=== PATIENT | male | born 1960 | race Caucasian/White ===

== ENCOUNTER → 2016-04-15 | Outpatient (CLI) | payer BC | LOC: SP 15:51 | PROVIDERS: ATTEND Internal Medicine | DX: I72.0 Aneurysm of carotid artery (principal) | CPT/HCPCS: 93880 ==

== ENCOUNTER → 2016-07-27 | Outpatient (CLI) | payer BC | LOC: RAD 12:38 | PROVIDERS: ATTEND Internal Medicine | DX: M79.662 Pain in left lower leg (principal); M79.89 Other specified soft tissue disorders; Z86.718 Personal history of other venous thrombosis and embolism | CPT/HCPCS: 93971 ==

== ENCOUNTER 2016-09-01 10:22 | Emergency (ER) | payer BC ==
[2016-09-01] MEDS ORDERED: ACETAMINOPHEN 325 MG TABLET PO ONE (11:24)
[2016-09-01] MEDS ORDERED: OXYCODONE HCL IR 5 MG TABLET PO ONE (12:05)
--- NOTE | 2016-09-01 13:20 | ER Document Report ---
ED General - General Chief Complaint: Leg Injury Stated Complaint: LEG PAIN Time Seen by Provider: 09/01/16 11:54 Mode of Arrival: Ambulatory Information source: Patient Notes: This is a 55-year-old man with a history of VTE presents to the emergency room with right lower extremity pain after hitting the leg against furniture. The patient is on Coumadin TRAVEL OUTSIDE OF THE [place] IN LAST 30 DAYS: No - HPI Onset: Just prior to arrival Onset/Duration: Sudden Quality of pain: Dull Severity: Moderate Pain Level: 2 Associated symptoms: denies: Chills, Fever, Shortness of breath Exacerbated by: Denies, Other - touching Relieved by: Denies Similar symptoms previously: No Recently seen / treated by doctor: No - Related Data Allergies/Adverse Reactions: No Known Allergies Allergy (Verified 09/01/16 10:25) Past Medical History - General Information source: Patient - Social History Smoking Status: Current Every Day Smoker Cigarette use (# per day): Yes - half ppd Chew tobacco use (# tins/day): No Frequency of alcohol use: Heavy Drug Abuse: None Lives with: Family Family History: Reviewed & Not Pertinent Patient has suicidal ideation: No Patient has homicidal ideation: No - Past Medical History Cardiac Medical History: Reports: Hx Pulmonary Embolism - X 4 Renal/ Medical History: Denies: Hx Peritoneal Dialysis Past Surgical History: Reports: Hx Abdominal Surgery - stent, Hx Orthopedic Surgery - bilat total hip - Immunizations Hx Diphtheria, Pertussis, Tetanus Vaccination: No Review of Systems - Review of Systems Constitutional: denies: Chills, Fever EENT: No symptoms reported Cardiovascular: No symptoms reported Respiratory: No symptoms reported Gastrointestinal: No symptoms reported Genitourinary: No symptoms reported Male Genitourinary: No symptoms reported Musculoskeletal: See HPI Skin: No symptoms reported Hematologic/Lymphatic: No symptoms reported Neurological/Psychological: No symptoms reported Physical Exam - Vital signs Vitals: Temp Pulse Resp BP Pulse Ox 96.8 F L 96 16 150/100 H 93 09/01/16 10:25 09/01/16 10:25 09/01/16 10:25 09/01/16 10:25 09/01/16 10:25 Notes: Physical exam: GENERAL: 5-year-old man, alert and oriented 3, no acute distress HEAD: Atraumatic, normocephalic. EYES: Pupils equal round and reactive to light, extraocular movements intact, sclera anicteric, conjunctiva are normal. ENT: TMs normal, nares patent, oropharynx clear without exudates. Moist mucous membranes. NECK: Normal range of motion, supple without lymphadenopathy or JVD. LUNGS: Breath sounds clear to auscultation bilaterally and equal. No wheezes rales or rhonchi. HEART: Regular rate and rhythm without murmurs, rubs or gallops. ABDOMEN: Soft, normoactive bowel sounds. No tenderness to palpation. No guarding, no rebound. No masses appreciated. EXTREMITIES: To the lateral aspect of the right lower extremity. No erythema or overlying warmth or any evidence of infection. Distal dorsal pedal pulses 2 + in the right lower extremity and is good NEUROLOGICAL: Cranial nerves II through XII grossly intact. Normal speech, normal gait. PSYCH: Normal mood, normal affect. SKIN: Warm, Dry, normal turgor, no rashes or lesions noted. Course - Vital Signs Vital signs: Temp Pulse Resp BP Pulse Ox 97.4 F 80 16 141/73 H 97 09/01/16 13:29 09/01/16 13:29 09/01/16 10:29 09/01/16 13:29 09/01/16 13:29 - Laboratory Laboratory results interpreted by me: 09/01/16 12:15 PT 27.0 H Discharge - Discharge Clinical Impression: Contusion to the right lower extremity Condition: Stable Disposition: HOME, SELF-CARE Additional Instructions: Recommendations: Take pain medicine as needed so that you can move around: It is important that you walk around given your history of bilateral femoral stents Follow-up with a primary care doctor regarding your Coumadin level. bring a copy of the results with you when you go see a doctor. Return to the emergency room for worsening pain or any concerns that you are getting worse Prescriptions: Oxycodone HCl/Acetaminophen [Percocet 10-325 Mg Tablet] 1 each PO Q6HP PRN #25 tablet PRN Reason: Referrals: JUAN F KABA MD [ACTIVE STAFF] - Follow up in 1 week (Primary care doctor affiliated with the hospital)
[2016-09-01 13:30] VITALS: BP 141/73
== END 2016-09-01 13:30 | disposition home or self-care (01) ==
LOC: ER 10:22
DX: S80.11XA Contusion of right lower leg, initial encounter (principal); M79.605 Pain in left leg; X58.XXXA Exposure to other specified factors, initial encounter; F17.210 Nicotine dependence, cigarettes, uncomplicated; Z79.01 Long term (current) use of anticoagulants
CPT/HCPCS: 36415; 85610; 99283

== ENCOUNTER → 2017-01-17 | Outpatient (CLI) | payer BC ==
[2017-01-17 10:22] LABS: PROTHROMBIN TIME 25.1 SEC (11.4-15.4)
== END ==
LOC: FU 10:08
PROVIDERS: ATTEND Internal Medicine
DX: Z79.01 Long term (current) use of anticoagulants (principal)
CPT/HCPCS: 85610